=== PATIENT | male | born 1990 | race Caucasian/White ===

== ENCOUNTER 2020-03-26 07:02 | Day surgery (SDC) | payer MEDICAID, OTHER, SELFPAY ==
[2020-03-26] VITALS (13 sets, daily range): BP systolic 106–134; BP diastolic 63–83; PULSE 62–96; RESP 11–21; TEMP 36.1–37.1; O2SAT 97–100
--- NOTE | 2020-03-26 | PATH_ITS ---
[facility] Accession Number: [id number] . 01 Material submitted: . appendix - APPENDIX . 01 Clinical history: . SEVERE RIGHT ABD PAIN/BACK X1 WEEK . 02 Diagnosis: Appendix, Appendectomy: Appendix with no diagnostic abnormality. No active inflammation identified. No evidence of neoplasm. [facility] 03/28/2020 1605 Local . 02 Electronically signed: . Patel Novoa MD, PhD, Pathologist NPI- [id number] . 01 Gross description: . Received in formalin, labeled appendix, and consists of a 5.0 cm in length by 0.7 cm in diameter vermiform appendix with attached baker-yellow, focally hemorrhagic, lobulated mesoappendix measuring 4.0 x 1.0 x 0.6 cm. The serosa is baker-pink and smooth. Sectioning reveals a baker mucosa and a lumen measuring 0.6 cm in diameter. The vermiform appendix is entirely submitted in cassettes A1-A3. ([id number]) /MRV 03/27/2020 1102 Local . 02 Pathologist provided ICD-10: R10.9 . 02 CPT . 936028 Performed at: 01 [facility] [address] [facility], [place], [place] [id number] MD Omega Galo MD Phone: [phone] Performed at: [address] [facility] [address] [place], [place] [id number] MD Anna Rm MD Phone: [phone]
--- NOTE | 2020-03-26 07:19 | ED_ITS ---
HPI - Abdominal Pain General Chief Complaint: Abdominal Pain Stated Complaint: severe right abd pain/back x1 week Time Seen by Provider: 03/26/20 07:13 Source: patient and family () Mode of arrival: Ambulatory Limitations: no limitations History of Present Illness HPI narrative: This is a 29-year-old male who comes in with right side abdominal pain for 1 week that resolved after several days and then returned shortly and has been significantly worse over the last 2 days and increasing. Patient states it does radiate towards his back. He states it has not changed location. No fevers, no chills. He denies any nausea or vomiting. He states he has been having regular bowel movements and denies any bright red blood or melena. He denies any urgency, dysuria frequency or hematuria. Patient states he has not had similar symptoms in the past. He has not had much of an appetite. His last meal was yesterday evening and his last liquid intake was at 5:45 a.m. patient is otherwise healthy with no prior surgical history, denies any drug allergies. Quit smoking tobacco in October, occasional alcohol, occasional THC no other illicit. He is accompanied by his . He does not have a primary care provi meena. Related Data Home Medications Medication Instructions Recorded Confirmed No Known Home Medications 03/26/20 03/26/20 Previous Rx's Medication Instructions Recorded acetaminophen [Tylenol] 650 mg PO QID PRN #60 cap 03/26/20 docusate sodium [Colace] 100 mg PO BID #30 cap 03/26/20 oxycodone 5 mg PO Q6H PRN 5 Days #30 tab 03/26/20 Allergies Allergy/AdvReac Type Severity Reaction Status Date / Time Influenza Virus Vaccines Allergy Verified 03/26/20 12:37 Review of Systems Review of Systems ROS Unobtainable: All systems reviewed & are unremarkable except as noted in HPI and below Patient History Social History household members: spouse Smoking Status: Former smoker alcohol intake: former Smoking Status: Former smoker (Quit in October) alcohol intake frequency: a few times a month Substance Use Type: marijuana Exam Narrative Exam Narrative: GENERAL: Alert and oriented x three, thin, well-appearing male in mild distress. HEENT: Head normocephalic, atraumatic, EOMI, pupils reactive, face symmetric, moist mucous membranes NECK: Supple, full range of motion CARDIOVASCULAR: Regular rate and rhythm without murmurs, rubs or gallops. RESPIRATORY: Breath sounds equal bilaterally, no wheezes rales or rhonchi. ABDOMEN: Soft, positive for right mid to lower abdominal tenderness which is moderate. Normoactive bowel sounds all 4 quadrants. No guarding or rebound, rigidity, no mass. No distention. No pulsatile mass or bruit. : Mild right CVA tenderness EXTREMITIES: Normal range of motion, no clubbing or edema. Neurovascularly intact NEUROLOGICAL: Cranial nerves II through XII grossly intact. Moving all extremities SKIN: Warm, dry, no petechiae, no rashes or lesions. Initial Vital Signs Initial Vital Signs: Vital Signs Temperature 98.3 F 03/26/20 07:19 Pulse Rate 79 03/26/20 07:19 Respiratory Rate 16 03/26/20 07:19 Blood Pressure 134/82 03/26/20 07:19 Pulse Oximetry 99 03/26/20 07:19 Course Orders Ordered: Albuterol (Albuterol 2.5 Mg/3 Ml Neb (Adult)) 2.5 mg INH NOW PRN PRN Reason: Coughing, Wheezing, Dyspnea Fentanyl (Fentanyl 100 Mcg/2 Ml Inj) 0 mcg IV Q5M PRN PRN Reason: Pain, Severe (7-10) Fentanyl (Fentanyl 100 Mcg/2 Ml Inj) 0 mcg IV Q5M PRN PRN Reason: Pain, Moderate (4-6) Fentanyl (Fentanyl 100 Mcg/2 Ml Inj) 0 mcg IV Q5MIN PRN PRN Reason: Pain, Mild (1-3) Hydroxyzine HCl (Hydroxyzine 50 Mg/Ml Inj) 25 mg IM NOW PRN PRN Reason: Pain, Mild (1-3) Lactated Ringer's (Lactated Ringers) 1,000 mls @ 42 mls/hr IV CONT DONNA Last Infusion: 03/26/20 15:15 Dose: 0 mls/hr Documented by: Infusion: 03/26/20 14:38 Dose: 42 mls/hr Documented by: Admin: 03/26/20 14:26 Dose: 42 mls/hr Documented by: Infusion: 03/26/20 14:26 Dose: 42 mls/hr Documented by: Admin: 03/26/20 12:39 Dose: 42 mls/hr Documented by: CGRESS Ondansetron HCl (Ondansetron 4 Mg/2 Ml Inj) 4 mg IV NOW PRN PRN Reason: Nausea And Vomiting Last Admin: 03/26/20 14:17 Dose: 4 mg Documented by: RAFA Oxycodone HCl (Oxycodone Ir 5 Mg Tablet) 5 mg PO PACUNOW PRN PRN Reason: Mild or moderate pain Last Admin: 03/26/20 14:25 Dose: 5 mg Documented by: RAFA Discontinued Medications Bupivacaine HCl (Bupivacaine 0.25% (Pf) Vial) 30 ml INJ NOW ONE Stop: 03/26/20 13:18 Last Admin: 03/26/20 13:17 Dose: 20 ml Documented by: JUAN RAMON Sodium Chloride (Normal Saline 0.9%) 1,000 mls @ 150 mls/hr IV CONT DONNA Sodium Chloride (Normal Saline 0.9%) 1,000 mls @ 1,000 mls/hr IV BOLUS ONE Stop: 03/26/20 08:29 Last Infusion: 03/26/20 09:13 Dose: 0 mls/hr Documented by: Admin: 03/26/20 07:33 Dose: 1,000 mls/hr Documented by: HANNAH Piperacillin Sod/Tazobactam (Sod 4.5 gm/ Sodium Chloride) 100 mls @ 200 mls/hr IV NOW ONE Stop: 03/26/20 11:23 Last Admin: 03/26/20 11:35 Dose: 200 mls/hr Documented by: LAKESHIA Acetaminophen (Ofirmev) 1,000 mg in 100 mls @ 400 mls/hr IV NOW ONE Stop: 03/26/20 13:17 Last Infusion: 03/26/20 13:46 Dose: 0 mls/hr Documented by: Admin: 03/26/20 13:19 Dose: 400 mls/hr Documented by: ABHIJEET Ketorolac Tromethamine (Ketorolac 60 Mg/2 Ml Vial) 15 mg IV NOW ONE Stop: 03/26/20 07:33 Last Admin: 03/26/20 07:35 Dose: 15 mg Documented by: HANNAH Consultations Consultation #1: Spoke with Dr. Carpenter, he was in the OR for free to call back. Patient has mildly thickened appendix he is tender in that area but not acute appendicitis by CT imaging. But patient does have symptoms that seem appropriate. Discussed that labs are normal. Dr. Carpenter will evaluate patient likely plan for appendectomy, plan to give antibiotics we discussed starting Zosyn and he will see patient department plan for OR. Time: 11:22 Vital Signs Vital signs: Vital Signs - 8 hr 03/26/20 11:30 03/26/20 12:24 03/26/20 14:13 Temperature 98.7 F 97.2 F L Pulse Rate 65 70 86 Respiratory Rate 16 16 Blood Pressure 111/69 115/76 128/69 Pulse Oximetry 100 99 98 03/26/20 14:18 03/26/20 14:28 03/26/20 14:33 Temperature Pulse Rate 79 80 69 Respiratory Rate 21 13 11 L Blood Pressure 132/74 126/64 121/73 Pulse Oximetry 97 98 97 03/26/20 14:38 03/26/20 15:00 Temperature 96.9 F L 97.7 F Pulse Rate 79 69 Respiratory Rate 13 16 Blood Pressure 132/67 127/83 Pulse Oximetry 99 98 MDM - Abdominal Pain Lab Data Attestation: I reviewed the patient's lab results. Result diagrams: 03/26/20 07:25 03/26/20 07:25 Labs: Lab Results 03/26/20 03/26/20 03/26/20 Range/Units 07:25 07:25 07:40 WBC 8.9 (4.5-11.0) X10^3/uL RBC 4.36 L (4.5-5.9) X10^6/uL Hgb 13.6 (13.5-17.5) g/dL Hct 39.8 L (41-53) % MCV 91.4 (80-100) fL MCH 31.1 (26-34) PG MCHC 34.0 (30-36) % RDW 12.6 (11.6-14.8) % Plt Count 149 L (150-400) X10^3/uL Neut % (Auto) 63.3 (50-75) % Lymph % (Auto) 25.9 (25-40) % [place] % (Auto) 9.6 (3-14) % Eos % (Auto) 0.8 L (2-4) % Baso % (Auto) 0.4 (0-2) % Neut # (Auto) 5600 (9432-5180) /uL Lymph # (Auto) 2300 (1683-2670) /uL [place] # (Auto) 900 (0-900) /uL Eos # (Auto) 100 (0-450) /uL Baso # (Auto) 0 (0-100) /uL Sodium 138 (137-145) mmol/L Potassium 3.5 (3.4-5.1) mmol/L Chloride 104 (98-107) mmol/L Carbon Dioxide 30 (22-32) mmol/L BUN 20 (9-20) mg/dL Creatinine 0.92 (0.66-1.25) mg/dL Estimated GFR > 60.0 (>60) mL/min BUN/Creatinine Ratio 21.7 (6-22) Glucose 100 (70-100) mg/dL Calcium 9.3 (8.4-10.2) mg/dL Total Bilirubin 0.5 (0.2-1.3) mg/dL AST 16 L (17-59) IU/L ALT 11 (<50) IU/L Alkaline Phosphatase 44 (38-126) U/L Total Protein 7.5 (6.3-8.2) g/dL Albumin 4.1 (3.5-5.0) g/dL Globulin 3.4 (1.7-4.1) g/dL Albumin/Globulin Ratio 1.2 (1.0-2.8) Lipase 78 (23-300) U/L COVID-19 PCR Negative (Negative) Point of care testing: Urine Dip Bedside Urine Glucose Negative Bedside Urine Bilirubin - Negative Bedside Urine Ketone - Negative Urine Specific [place] 1.010 Bedside Urine Occult Blood - Negative Bedside Urine pH 6.0 Bedside Urine Protein - Negative Bedside Urine Urobilinogen - Negative Bedside Urine Nitrite - Negative Bedside Urine Leukocytes - Negative Esterase Imaging Data CT scan - abdomen/pelvis: Radiologist's Impression: [address] [id number] Scan ReportSigned Patient: Tolu De La Torre RMR#: [id number]: [id number]:[id number]/Sex: MDate of Service: 03/26/20Loc: EDAccession Number: [id number] Procedure: CT abdomen pelvis w con Ordering Provider: Ann Navarrete D.O. PROCEDURE: CT ABDOMEN PELVIS W CON INDICATIONS: RLQ pain TECHNIQUE: After the administration of intravenous contrast, 5 mm thick sections acquired from the diaphragm to the symphysis. 5 mm coronal and sagittal reformats were acquired. For radiation dose reduction, the following was used: automated exposure control, adjustment of mA and/or kV according to patient size. COMPARISON: None. FINDINGS: Image quality: Excellent. ABDOMEN: Lung bases: Focal posterior right basal atelectasis versus pneumonia. Heart size is normal. Solid organs: Liver is normal in size and enhancement. Gallbladder is unremarkable. Biliary system is non dilated. Pancreas enhances normally. Spleen is normal in size and enhancement. No adrenal nodules. Kidneys demonstrate normal size and en hancement, without hydronephrosis. Peritoneum and bowel: Bowel loops demonstrate normal wall thickness and caliber. No free fluid or air. There is an air containing appendix. Its wall is mildly thickened and enhancing, but it is diffusely air-containing period and it is not dilated. Large amount of fecal debris present in the cecum and right colon. Nodes and vessels: No retroperitoneal or mesenteric adenopathy by size criteria. Aorta and inferior vena cava are normal in size. Miscellaneous: No ventral hernias. PELVIS: Genitourinary: Bladder wall thickness is normal. Miscellaneous: No inguinal hernias or adenopathy. Bones: No suspicious bony lesions. No vertebral body compression fractures. IMPRESSION: 1. No evidence of acute appendicitis. However, the appendix has mild wall thickening and wall enhancement suggesting perhaps that it has chronic inflammation. 2. Large amount of right colonic fecal debris. New line 3. Focal atelectasis versus pneumonia in the extreme right lung base. Dictated by: Jesús Hendrickson M.D. on 03/26/2020 at 8:53 Approved by: Jesús Hendrickson M.D. on 03/26/2020 at 8:58 MDM Narrative Medical decision making narrative: 29-year-old male comes to the emergency department with complaint of right-sided abdominal pain particularly in the mid to lower region. He states it also radiates towards his back. Patient had worsening pain that is only resolved and then has reoccurred and is significantly worse than prior. Suspicious for possible appendicitis, other etiologies could include kidney stones, colitis or diverticulitis, mesenteric a denitis or vascular cause. With potential for rupture CT abdomen pelvis seemed appropriate imaging choice. Discharge Plan Departure Patient Disposition: Home Clinical Impression: Appendicitis Instructions: DI for an Appendectomy, DI for Laparoscopy, [facility]: Wound Care Activity Restrictions/Additional Instructions: No lifting >20 lbs x 4 weeks. Walking only for exercise for 4 [address] while taking narcotics. Prescriptions: New docusate sodium [Colace] 100 mg capsule 100 mg PO BID Qty: 30 RF: 0 oxycodone 5 mg tablet 5 mg PO Q6H PRN (Reason: pain) 5 Days Qty: 30 RF: 0 acetaminophen [Tylenol] 325 mg capsule 650 mg PO QID PRN (Reason: pain) Qty: 60 RF: 0 No Action No Known Home Medications RF: 0 Referrals: Sunil Carpenter MD [Physician] - None Stand Alone Forms: Surgery Discharge
[2020-03-26] MEDS: SODIUM CHLORIDE 0.9% 1,000 ML 1000 ML IV (07:33)
[2020-03-26 07:34] LABS: Add Manual Diff / Slide Review NO; Basophils Absolute Auto 0 /uL (0-100); Basophils Percent Auto 0.4 % (0-2); Eosinophils Absolute Auto 100 /uL (0-450); Eosinophils Percent Auto 0.8 % (2-4); Hematocrit 39.8 % (41-53); Hemoglobin 13.6 g/dL (13.5-17.5); Lymphocytes Absolute Auto 2300 /uL (1100-4500); Lymphocytes Percent Auto 25.9 % (25-40); Mean Corpuscular Hemoglobin 31.1 PG (26-34); Mean Corpuscular Volume 91.4 fL (80-100); Monocytes Absolute Auto 900 /uL (0-900); Monocytes Percent Auto 9.6 % (3-14); Neutrophils Absolute Auto 5600 /uL (1500-7000); Neutrophils Percent Auto 63.3 % (50-75); Platelet Count 149 X10^3/uL (150-400); Red Blood Cell Count 4.36 X10^6/uL (4.5-5.9); Red Cell Distribution Width 12.6 % (11.6-14.8); White Blood Cell Count 8.9 X10^3/uL (4.5-11.0)
[2020-03-26] MEDS: KETOROLAC 60 MG/2 ML VIAL 15 MG IV (07:35)
[2020-03-26 07:46] LABS: Alanine Aminotransferase 11 IU/L (<50); Albumin 4.1 g/dL (3.5-5.0); Albumin Globulin Ratio 1.2 (1.0-2.8); Alkaline Phosphatase 44 U/L (38-126); Aspartate Aminotransferase 16 IU/L (17-59); BUN Creatinine Ratio 21.7 (6-22); Bilirubin Total 0.5 mg/dL (0.2-1.3); Blood Urea Nitrogen 20 mg/dL (9-20); Calcium 9.3 mg/dL (8.4-10.2); Carbon Dioxide 30 mmol/L (22-32); Chloride 104 mmol/L (98-107); Estimated Glomerular Filt Rate > 60.0 mL/min (>60); Globulin 3.4 g/dL (1.7-4.1); Glucose 100 mg/dL (70-100); HEMOLYSIS < 15 (0-50); Lipase 78 U/L (23-300); Potassium 3.5 mmol/L (3.4-5.1); Sodium 138 mmol/L (137-145); Total Protein 7.5 g/dL (6.3-8.2)
[2020-03-26 08:04] LABS: COVID19 -Nasal RAPID Negative (Negative)
--- NOTE | 2020-03-26 08:19 | DI.CT.S_ITS ---
PROCEDURE: CT ABDOMEN PELVIS W CON INDICATIONS: RLQ pain TECHNIQUE: After the administration of intravenous contrast, 5 mm thick sections acquired from the diaphragm to the symphysis. 5 mm coronal and sagittal reformats were acquired. For radiation dose reduction, the following was used: automated exposure control, adjustment of mA and/or kV according to patient size. COMPARISON: None. FINDINGS: Image quality: Excellent. ABDOMEN: Lung bases: Focal posterior right basal atelectasis versus pneumonia. Heart size is normal. Solid organs: Liver is normal in size and enhancement. Gallbladder is unremarkable. Biliary system is non dilated. Pancreas enhances normally. Spleen is normal in size and enhancement. No adrenal nodules. Kidneys demonstrate normal size and enhancement, without hydronephrosis. Peritoneum and bowel: Bowel loops demonstrate normal wall thickness and caliber. No free fluid or air. There is an air containing appendix. Its wall is mildly thickened and enhancing, but it is diffusely air-containing period and it is not dilated. Large amount of fecal debris present in the cecum and right colon. Nodes and vessels: No retroperitoneal or mesenteric adenopathy by size criteria. Aorta and inferior vena cava are normal in size. Miscellaneous: No ventral hernias. PELVIS: Genitourinary: Bladder wall thickness is normal. Miscellaneous: No inguinal hernias or adenopathy. Bones: No suspicious bony lesions. No vertebral body compression fractures. IMPRESSION: 1. No evidence of acute appendicitis. However, the appendix has mild wall thickening and wall enhancement suggesting perhaps that it has chronic inflammation. 2. Large amount of right colonic fecal debris. New line 3. Focal atelectasis versus pneumonia in the extreme right lung base. Dictated by: Jesús Hendrickson M.D. on 03/26/2020 at 8:53 Approved by: Jesús Hendrickson M.D. on 03/26/2020 at 8:58
[2020-03-26] MEDS: PIPERACILLIN/TAZO 4.5 GM in SODIUM CHLORIDE 0.9% 100 ML 200 ML IV (11:35)
--- NOTE | 2020-03-26 12:35 | PM.HP.1 ---
History of Present Illness History of Present Illness Date Patient Seen: 03/26/20 Time Patient Seen: 12:35 Chief complaint: severe right abd pain/back x1 week Narrative: 29-year-old male seen in consultation for acute appendicitis. He has had 5 days of abdominal pain primarily in the right lower quadrant. After the 1st 3 days his pain improved significantly and then returned today. No nausea vomiting diarrhea fever. CT abdomen pelvis demonstrates inflammation of the appendiceal wall however no significant dilation abscess or free fluid. Admission afebrile WBC 9 hematocrit 40. No prior abdominal surgery. Patient History Family & Social History Safety & Behavioral: Feels Safe in Current Yes Environment Been Physically Hurt or No Threatened By a Person Tobacco & Substance use: Smoking Status Former smoker alcohol intake frequency a few times a month Substance Use Type marijuana Meds Home Medications and Allergies Home Medications Medication Instructions Recorded Confirmed Type No Known Home Medications 03/26/20 03/26/20 History Allergies Allergy/AdvReac Type Severity Reaction Status Date / Time Influenza Virus Vaccines Allergy Verified 03/26/20 12:37 Review of Systems Review of Systems Narrative: A 10 point review of systems is negative except as noted in the HPI Exam Vital Signs (past 8 hours): - 03/26/20 07:19 03/26/20 10:40 03/26/20 10:41 Temperature 98.3 F Pulse Rate 79 76 72 Respiratory Rate 16 Blood Pressure 134/82 112/69 Pulse Oximetry 99 99 03/26/20 10:42 03/26/20 11:00 03/26/20 11:30 Temperature Pulse Rate 62 65 Respiratory Rate 16 Blood Pressure 112/69 106/63 111/69 Pulse Oximetry 99 99 100 Oxygen Delivery Method Room Air Narrative Exam Narrative: General-no acute distress, well nourished adult male thin HEENT-moist mucous membranes, no scleral icterus Neck-supple, no lymphadenopathy Chest- non labored respirations, clear to auscultation bilaterally Cardiac-regular rate no peripheral edema Abdomen-right lower quadrant focal tenderness. Extremities-warm, well perfused Neurological-alert and oriented, no focal deficits Objective Labs Result Diagrams: 03/26/20 07:25 03/26/20 07:25 Labs: Laboratory Results - last 24 hr 03/26/20 03/26/20 03/26/20 07:25 07:25 07:40 WBC 8.9 RBC 4.36 L Hgb 13.6 Hct 39.8 L MCV 91.4 MCH 31.1 MCHC 34.0 RDW 12.6 Plt Count 149 L Neut % (Auto) 63.3 Lymph % (Auto) 25.9 [place] % (Auto) 9.6 Eos % (Auto) 0.8 L Baso % (Auto) 0.4 Neut # (Auto) 5600 Lymph # (Auto) 2300 [place] # (Auto) 900 Eos # (Auto) 100 Baso # (Auto) 0 Sodium 138 Potassium 3.5 Chloride 104 Carbon Dioxide 30 BUN 20 Creatinine 0.92 Estimated GFR > 60.0 BUN/Creatinine Ratio 21.7 Glucose 100 Calcium 9.3 Total Bilirubin 0.5 AST 16 L ALT 11 Alkaline Phosphatase 44 Total Protein 7.5 Albumin 4.1 Globulin 3.4 Albumin/Globulin Ratio 1.2 Lipase 78 COVID-19 PCR Negative Assessment & Plan Assessment and plan (1) Appendicitis: Status: Acute Assessment & Plan narrative: 29-year-old male with acute appendicitis. Laboratory studies and imaging reviewed. CT abdomen pelvis demonstrates inflammation of the appendiceal wall however the appendix is not significantly dilated. I suspect he has acute appendicitis based on his symptoms and imaging he is also especially thin which decreases the sensitivity of the imaging. Recommended that we proceed with a laparoscopic appendectomy. Technical details were discussed. The operative risks including bleeding infection conversion open damage to surrounding structures were discussed. His questions have been answered he is in agreement with this plan.
[2020-03-26] MEDS: LACTATED RINGERS 1,000 ML 42 ML IV ×2 (12:39→14:26)
--- NOTE | 2020-03-26 13:13 | SUR.OPER ---
Supine on padded OR bed, head on pillow, left arm padded and tucked at side, legs uncrossed, right arm <90 degree with safety strap, safety belt at thigh, tape over blanket over lower legs .
[2020-03-26] MEDS: BUPIVACAINE 0.25% (PF) VIAL 30 ML INJ (13:17)
[2020-03-26] MEDS: ACETAMINOPHEN IV 1,000 MG/100 ML VIAL 400 MG IV (13:19)
[2020-03-26] MEDS: ONDANSETRON 4 MG/2 ML INJ IV (14:17)
[2020-03-26] MEDS: OXYCODONE IR 5 MG TABLET PO (14:25)
--- NOTE | 2020-03-26 14:30 | P.OP_ITS ---
Operative Date/Time/Diagnoses Date of procedure: 03/26/20 Time of procedure: 14:30 Pre-op diagnosis: Acute appendicitis Post-op diagnosis: same Procedure & Clinicians Procedure: Laparoscopic appendectomy Same procedure as scheduled: Yes Indications: 29-year-old male presented with right lower quadrant pain CT abdomen pelvis demonstrates a inflamed appendiceal wall, no abscess or free fluid Surgeon: Sunil Carpenter Click Yes if Unassisted: Yes Anesthesia Type: General Operative Notes Findings: Acute non perforated appendicitis Specimen(s): other (Appendix) Procedure in detail: Patient was brought to the operating room placed supine on the table. Bilateral lower extremity compression devices were applied. Anesthesia was induced and they intubated with an endotracheal tube. They received 3.375 g of Zosyn prior to skin incision. The left arm was tucked and appropriately padded. They were prepped and draped in sterile fashion. Time-out was performed. An infraumbilical incision was made the umbilical stalk was grasped and elevated and incision was made and the abdomen was entered atraumatically. A 12 mm balloon trocar was then placed through the incision and pneumoperitoneum of 14 mm Hg was established. The scope was then inserted and the abdomen inspected, there was no evidence of injury upon entry. Two 5 mm ports were placed under direct visualization, one in the left lower quadrant and second in the lower midline. A thorough laparoscopic evaluation was performed inspecting all four quadrants. The patient was then tilted right side up. The small bowel was then swept to the upper aspect of the abdomen. The tenie were followed to the base of the cecum where the appendix was identified. The ap pendix was was mobilized from its lateral attachments. It was acutely inflamed but not perforated. The appendix was grasped and a window within the mesentery was made at the base of the appendix using the [place] dissector with care to avoid injuring the cecum. The mesoappendix was then cauterized and divided. The appendix was then amputated flush at the cecum using the endo-stapler blue load. The specimen was retrieved using a endoscopic retrieval bad through the 10 mm infra-umbilical port. The right paracolic gutter and the pouch of Manuel were irrigated The 5 mm ports were then removed under direct visualization. The umbilical fascial incision was closed with 0 Vicryl in a figure-eight fashion. The skin wounds were irrigated and closed with 4-0 Monocryl followed by the application of Dermabond. Sponge instrument count at the end of the operation was correct. The patient tolerated procedure well was extubated and transferred to the postoperative care unit in stable condition. Complications: none Post-operative Condition: stable Disposition: same day surgery
--- NOTE | 2020-04-10 12:46 | PC.NURSE ---
Late entry: Zosyn infused at 1205 hrs.
== END 2020-03-26 14:30 | disposition home or self-care (01) ==
LOC: ED 03-29 15:00 → OR 03-29 15:06
PROVIDERS: Emergency Provider Emergency Medicine; Visit Provider Surgery
PROC: 0DTJ4ZZ Resection of Appendix, Percutaneous Endoscopic Approach (ICD-10-PCS; CPT 44970; principal; 2020-03-26 12:30)
DX: R93.5 Abnormal findings on diagnostic imaging of other abdominal regions, including retroperitoneum (principal); Z20.828 Contact with and (suspected) exposure to other viral communicable diseases
CPT/HCPCS: 44970; 36415; 74177; 80053; 81003; 83690; 85025; 87635; 96361; 96365; 96367; 96375; 99219; 99282; 99284; J0131; J0330; J1100; J1885; J2250; J2405; J2543; J2704; J3010; Q9967

== ENCOUNTER 2020-05-02 18:20 | Emergency (ER) | payer OTHER, MEDICAID, SELFPAY ==
[2020-05-02 18:24] VITALS: BP 113/66; PULSE 102; RESP 18; TEMP 36.6; O2SAT 98; BMI 19.8
--- NOTE | 2020-05-02 18:34 | DI.CT.S_ITS ---
PROCEDURE: CT ABDOMEN PELVIS W CON INDICATIONS: Right-sided abdominal pain TECHNIQUE: After the administration of intravenous contrast, 5 mm thick sections acquired from the diaphragm to the symphysis. 5 mm coronal and sagittal reformats were acquired. For radiation dose reduction, the following was used: automated exposure control, adjustment of mA and/or kV according to patient size. COMPARISON: [facility], CT, CT ABDOMEN PELVIS W CON, 03/26/2020, 8:16. FINDINGS: Image quality: Excellent. ABDOMEN: Lung bases: Lung bases are clear. Heart size is normal. Solid organs: Liver is normal in size and enhancement. Gallbladder negative. Biliary system is non dilated. Pancreas enhances normally. Spleen is normal in size and enhancement. No adrenal nodules. Kidneys demonstrate normal size and enhancement, without hydronephrosis. Peritoneum and bowel: Bowel loops demonstrate normal wall thickness and caliber. No free fluid or air. Appendix appears surgically absent. Nodes and vessels: No retroperitoneal or mesenteric adenopathy by size criteria. Aorta and inferior vena cava are normal in size. Miscellaneous: No ventral hernias. PELVIS: Genitourinary: Bladder wall thickness is normal. Miscellaneous: No inguinal hernias or adenopathy. Bones: No suspicious bony lesions. No vertebral body compression fractures. IMPRESSION: No acute abnormality to explain right-sided abdominal pain. Dictated by: Karlos Rodriguez M.D. on 05/02/2020 at 19:41 Approved by: Karlos Rodriguez M.D. on 05/02/2020 at 19:44
[2020-05-02 18:55] LABS: Add Manual Diff / Slide Review NO; Basophils Absolute Auto 100 /uL (0-100); Basophils Percent Auto 0.7 % (0-2); Eosinophils Absolute Auto 0 /uL (0-450); Eosinophils Percent Auto 0.3 % (2-4); Hematocrit 39.1 % (41-53); Hemoglobin 13.4 g/dL (13.5-17.5); Lymphocytes Absolute Auto 2100 /uL (1100-4500); Lymphocytes Percent Auto 24.8 % (25-40); Mean Corpuscular HGB Conc 34.2 % (30-36); Mean Corpuscular Hemoglobin 31.9 PG (26-34); Mean Corpuscular Volume 93.4 fL (80-100); Monocytes Absolute Auto 600 /uL (0-900); Monocytes Percent Auto 6.8 % (3-14); Neutrophils Absolute Auto 5700 /uL (1500-7000); Neutrophils Percent Auto 67.4 % (50-75); Platelet Count 151 X10^3/uL (150-400); Red Blood Cell Count 4.19 X10^6/uL (4.5-5.9); Red Cell Distribution Width 13.6 % (11.6-14.8); White Blood Cell Count 8.5 X10^3/uL (4.5-11.0)
[2020-05-02 18:58] VITALS: PULSE 80; O2SAT 99
[2020-05-02 19:00] VITALS: BP 110/72; PULSE 83; O2SAT 99
[2020-05-02] MEDS: SODIUM CHLORIDE 0.9% 1,000 ML 1000 ML IV (19:01)
[2020-05-02 19:05] LABS: Alanine Aminotransferase 12 IU/L (<50); Albumin 4.2 g/dL (3.5-5.0); Albumin Globulin Ratio 1.4 (1.0-2.8); Alkaline Phosphatase 42 U/L (38-126); Aspartate Aminotransferase 17 IU/L (17-59); Bilirubin Total 0.5 mg/dL (0.2-1.3); Blood Urea Nitrogen 16 mg/dL (9-20); Calcium 9.1 mg/dL (8.4-10.2); Carbon Dioxide 28 mmol/L (22-32); Chloride 102 mmol/L (98-107); Estimated Glomerular Filt Rate > 60.0 mL/min (>60); Glucose 82 mg/dL (70-100); HEMOLYSIS < 15 (0-50); Lipase 31 U/L (23-300); Potassium 3.9 mmol/L (3.4-5.1); Sodium 135 mmol/L (137-145); Total Protein 7.2 g/dL (6.3-8.2)
--- NOTE | 2020-05-02 20:02 | ED_ITS ---
HPI - General Adult General Chief complaint: Abdominal Pain Stated complaint: states Appy month ago, pain now right lwr abdomen Time Seen by Provider: 05/02/20 18:33 Source: patient Mode of arrival: Ambulatory Limitations: no limitations History of Present Illness HPI narrative: 29-year-old male here for evaluation of right-sided abdominal pain. He states that has been going on for the past couple days. It seems to come and go. Is very sharp last for short period of time and then completely resolved. No urinary symptoms. No change in bowel habits. No nausea vomiting. No fevers. Approximately 1 month ago he had a appendectomy for pain that was very similar to his presentation today. Patient states that he was told afterwards that after the surgery the surgeon told him that his appendix was not inflamed/infected. There was no definitive diagnosis as to what was causing his discomfort at that time. He states that the pain today feels very similar to that episode. Since the surgery until couple days ago he has been symptom-free. Related Data Previous Rx's Medication Instructions Recorded acetaminophen [Tylenol] 650 mg PO QID PRN #60 cap 03/26/20 docusate sodium [Colace] 100 mg PO BID #30 cap 03/26/20 cyclobenzaprine 10 mg PO TID PRN #10 tab 05/02/20 Allergies Allergy/AdvReac Type Severity Reaction Status Date / Time Influenza Virus Vaccines Allergy Verified 05/02/20 18:23 Review of Systems Constitutional Constitutional: Denies fever(s) Cardiovascular Cardiovascular: Denies chest pain and Denies dyspnea Respiratory Respiratory: Denies dyspnea Gastrointestinal Gastrointestinal: Reports abdominal pain, Denies nausea and Denies vomiting Genitourinary Genitourinary: Denies dysuria Genitourinary: Denies dysuria Musculoskeletal Musculoskeletal: Denies myalgias Integumentary/Breasts Skin/Breast: Denies rash Neurologic Neurologic: Denies behavioral changes Psychiatric Psychiatric: Denies behavioral changes Hematologic/Lymphatic Hematologic/Lymphatic: Denies easy bleeding and Denies easy bruising Patient History Medical History Healthy adult Social History household members: spouse Smoking Status: Former smoker alcohol intake: former Smoking Status: Former smoker alcohol intake frequency: a few times a month Substance Use Type: marijuana Exam Initial Vital Signs Initial Vital Signs: Vital Signs Temperature 97.9 F 05/02/20 18:24 Pulse Rate 102 H 05/02/20 18:24 Respiratory Rate 18 05/02/20 18:24 Blood Pressure 113/66 05/02/20 18:24 Pulse Oximetry 98 05/02/20 18:24 Const General: cooperative and comfortable Limitations: mental status not altered HENMT Head: normal to inspection and normocephalic Resp Effort & Inspection: normal respiratory effort Cardio Rate: tachycardic Rhythm: regular rhythm GI Inspection: non-distended Palpation: soft and No tender Skin Lesions: no lesions Rashes: no rashes Neuro General: patient alert and patient awake Cognition: normal cognition Speech: speech normal Extrem General: capillary refill normal Psych Appearance: grossly normal and well kempt Course Orders Ordered: ED Orders 05/02/20 18:34 CT abdomen pelvis w con Stat 05/02/20 18:47 Complete Blood Count AUTO DIFF Stat Comprehensive Metabolic Panel Stat Lipase Stat 05/02/20 20:01 US abdomen limited Stat Discontinued Medications Cyclobenzaprine HCl (Cyclobenzaprine 10 Mg Prepack) 1 bottle MISC SEEINSTR ONE Stop: 05/02/20 21:50 Last Admin: 05/02/20 21:57 Dose: 1 bottle Documented by: ARMEN Sodium Chloride (Normal Saline 0.9%) 1,000 mls @ 1,000 mls/hr IV BOLUS ONE Stop: 05/02/20 19:32 Last Infusion: 05/02/20 20:14 Dose: 0 mls/hr Documented by: Admin: 05/02/20 19:01 Dose: 1,000 mls/hr Documented by: SANGEETA Vital Signs Vital signs: Vital Signs - 8 hr 05/02/20 18:24 05/02/20 18:58 05/02/20 19:00 Temperature 97.9 F Pulse Rate 102 H 80 83 Respiratory Rate 18 Blood Pressure 113/66 110/72 Pulse Oximetry 98 99 99 05/02/20 20:30 05/02/20 21:52 05/02/20 21:54 Temperature Pulse Rate 86 Respiratory Rate 16 Blood Pressure 112/65 Pulse Oximetry 99 Medical Decision Making Lab Data Lab results reviewed: Yes I reviewed the patient's lab results. Result diagrams: 05/02/20 18:47 05/02/20 18:47 Labs: Lab Results 05/02/20 05/02/20 Range/Units 18:47 18:47 WBC 8.5 (4.5-11.0) X10^3/uL RBC 4.19 L (4.5-5.9) X10^6/uL Hgb 13.4 L (13.5-17.5) g/dL Hct 39.1 L (41-53) % MCV 93.4 (80-100) fL MCH 31.9 (26-34) PG MCHC 34.2 (30-36) % RDW 13.6 (11.6-14.8) % Plt Count 151 (150-400) X10^3/uL Neut % (Auto) 67.4 (50-75) % Lymph % (Auto) 24.8 L (25-40) % [place] % (Auto) 6.8 (3-14) % Eos % (Auto) 0.3 L (2-4) % Baso % (Auto) 0.7 (0-2) % Neut # (Auto) 5700 (1171-7107) /uL Lymph # (Auto) 2100 (1366-2867) /uL [place] # (Auto) 600 (0-900) /uL Eos # (Auto) 0 (0-450) /uL Baso # (Auto) 100 (0-100) /uL Sodium 135 L (137-145) mmol/L Potassium 3.9 (3.4-5.1) mmol/L Chloride 102 (98-107) mmol/L Carbon Dioxide 28 (22-32) mmol/L BUN 16 (9-20) mg/dL Creatinine 0.80 (0.66-1.25) mg/dL Estimated GFR > 60.0 (>60) mL/min BUN/Creatinine Ratio 20.0 (6-22) Glucose 82 (70-100) mg/dL Calcium 9.1 (8.4-10.2) mg/dL Total Bilirubin 0.5 (0.2-1.3) mg/dL AST 17 (17-59) IU/L ALT 12 (<50) IU/L Alkaline Phosphatase 42 (38-126) U/L Total Protein 7.2 (6.3-8.2) g/dL Albumin 4.2 (3.5-5.0) g/dL Globulin 3.0 (1.7-4.1) g/dL Albumin/Globulin Ratio 1.4 (1.0-2.8) Lipase 31 (23-300) U/L Imaging Data CT scan - abdomen/pelvis: Radiologist's Impression: [address] [id number] Scan ReportSigned Patient: Tolu De La Torre RMR#: [id number]: 1990Acct:[id number]/Sex: te of Service: 05/02/20Loc: EDAccession Number: [id number] Procedure: CT abdomen pelvis w con Ordering Provider: Tamir Boggs D.O. PROCEDURE: CT ABDOMEN PELVIS W CON INDICATIONS: Right-sided abdominal pain TECHNIQUE: After the administration of intravenous contrast, 5 mm thick sections acquired from the diaphragm to the symphysis. 5 mm coronal and sagittal reformats were acquired. For radiation dose reduction, the following was used: automated exposure control, adjustment of mA and/or kV according to patient size. COMPARISON: [facility], CT, CT ABDOMEN PELVIS W CON, 03/26/2020, 8:16. FINDINGS: Image quality: Excellent. ABDOMEN: Lung bases: Lung bases are clear. Heart size is normal. Solid organs: Liver is normal in size and enhancement. Gallbladder negative. Biliary system is non dilated. Pancreas enhances normally. Spleen is normal in size and enhancement. No adrenal nodules. Kidneys demonstrate normal size and enhancement, without hydronephrosis. Peritoneum and bowel: Bowel loops demonstrate normal wall thickness and caliber. No free fluid or air. Appendix appears surgically absent. Nodes and vessels: No retroperitoneal or mesenteric adenopathy by size criteria. Aorta and inferior vena cava are normal in size. Miscellaneous: No ventral hernias. PELVIS: Genitourinary: Bladder wall thickness is normal. Miscellaneous: No inguinal hernias or adenopathy. Bones: No suspicious bony lesions. No vertebral body compression fractures. IMPRESSION: No acute abnormality to explain right-sided abdominal pain. Dictated by: Karlos Rodriguez M.D. on 05/02/2020 at 19:41 Approved by: Karlos Rodriguez M.D. on 05/02/2020 at 19:44 US - abdomen: Radiologist's Impression: [address] [id number] ReportSigned Patient: Tolu De La Torre RMR#: [id number]: 1990Acct:[id number]/Sex: te of Service: 05/02/20Loc: EDAccession Number: [id number] Procedure: US abdomen limited Ordering Provider: Tamir Boggs D.O. PROCEDURE: US ABDOMEN LIMITED INDICATIONS: RIGHT UPPER QUADRANT PAIN TECHNIQUE: Real-time focused scanning was performed of the abdomen, with image documentation. COMPARISON: None. FINDINGS: Liver measures 12.2 cm in length and is normal in echotexture. No focal hepatic lesion identified. The gallbladder is unremarkable. No sonographic Ge sign. No intra or extra bile duct dilatation. The pancreas is sonographically unremarkable. IMPRESSION: Negative examination as above. Normal appearance of the gallbladder. Dictated by: Karlos Rodriguez M.D. on 05/02/2020 at 21:15 Approved by: Karlos Rodriguez M.D. on 05/02/2020 at 21:16 [facility] Narrative Medical decision making narrative: Patient does have a benign exam. He was instructed to come the emergency department by the on-call general surgeon with a request for repeat CT scan. This is performed and show no acute pathology. Given the colicky nature of his symptoms or right upper quadrant ultrasound was ordered which was also unremarkable. He has no skin changes. No signs of infection. No emergent surgical or infectious etiology was found on the exam today. I do have some suspicion this potentially could be a musculoskeletal etiology so we will start him on muscle relaxers to see this does not improve his symptoms. He was given strict return precautions and follow-up instructions. He expressed understanding and agreement. Discharge Plan Departure Patient Disposition: Home Clinical Impression: Acute right-sided back pain Activity Restrictions/Additional Instructions: Recommend you contact your primary provider for a follow-up. Return to the emergency department for any new or worsening symptoms. Prescriptions: New cyclobenzaprine 10 mg tablet 10 mg PO TID PRN (Reason: muscle spasm) Qty: 10 RF: 0 No Action docusate sodium [Colace] 100 mg capsule 100 mg PO BID Qty: 30 RF: 0 acetaminophen [Tylenol] 325 mg capsule 650 mg PO QID PRN (Reason: pain) Qty: 60 RF: 0
[2020-05-02 20:30] VITALS: PULSE 86; O2SAT 99
[2020-05-02 21:52] VITALS: BP 112/65
[2020-05-02 21:54] VITALS: RESP 16
[2020-05-02] MEDS: CYCLOBENZAPRINE 10 MG PREPACK 1 BOTTLE MISC (21:57)
== END 2020-05-02 21:58 | disposition home or self-care (01) ==
PROVIDERS: Emergency Provider Emergency Medicine
DX: M54.9 Dorsalgia, unspecified (principal); R10.11 Right upper quadrant pain
CPT/HCPCS: 36415; 74177; 76705; 80053; 83690; 85025; 96360; 99284; Q9967

== ENCOUNTER → 2020-05-14 08:11 | Outpatient (CLI) | payer OTHER, MEDICAID, SELFPAY ==
--- NOTE | 2020-05-14 08:13 | DI.US.S_ITS ---
PROCEDURE: US SCROTUM INDICATIONS: SCROTAL DISCOMFORT TECHNIQUE: Real-time scanning was performed of the scrotum and testicles, with image documentation. Color and pulse Doppler interrogation was performed of both testicles. COMPARISON: [facility], US, US ABDOMEN LIMITED, 05/02/2020, 20:50. [facility], CT, CT ABDOMEN PELVIS W CON, 05/02/2020, 19:12. FINDINGS: Right: Testicle is normal in size at 3.8 x 1.6 x 2.6 cm, and homogenous in echotexture. Epididymis is normal in overall size and morphology. No hydrocele or varicoceles. Overlying scrotal skin is normal in thickness. Left: Testicle is normal in size at 3.5 x 1.6 x 2.6 cm, and homogeneous in echotexture. Epididymis is normal in overall size and morphology. No hydrocele or varicoceles. Overlying scrotal skin is normal in thickness. Doppler: Color and pulse Doppler demonstrate normal and symmetric arterial flow in both testicles. Limited evaluation of the groin on both sides demonstrates no significant abnormality. No linda hernia can be seen. IMPRESSION: Negative study, without an imaging explanation found for the patient's presenting symptoms. Dictated by: Cm Conrad M.D. on 05/14/2020 at 9:17 Approved by: Cm Conrad M.D. on 05/14/2020 at 9:18
== END ==
PROVIDERS: PCP Family Medicine; Referring Provider Family Medicine; Visit Provider Family Medicine
DX: I86.1 Scrotal varices (principal)
CPT/HCPCS: 76870